=== PATIENT | male | born 1965 | race African-American/Black ===

== ENCOUNTER 2016-11-20 07:40 | Inpatient (IN) ==
[2016-11-20] MEDS ORDERED: SODIUM CHLORIDE 0.9% 1,000 ML IV STA ×2 (08:15→09:54)
[2016-11-20] MEDS ORDERED: HYDROmorphone 2 MG/1 ML VIAL IV STA (08:15)
[2016-11-20] MEDS ORDERED: ONDANSETRON 4 MG/2 ML VIAL IV STA (08:15)
[2016-11-20 08:36] LABS: Basophils % 0.4 % (0.0-0.8); Eosinophils # 0.1 10*3/uL (0.0-0.87); Eosinophils % 0.8 % (0.00-10.9); Hematocrit 44.9 VOL% (42.0-52.0); Hemoglobin 15.5 GM/DL (14.0-18.0); Immature Granulocytes % 0.3 %; Immature Granulocytes Absolute 0.02 #; Lymphocytes # 1.3 10*3/uL (1.4-4.0); Lymphocytes % 17.6 % (21.2-54.2); Mean Corpuscular HGB Conc 34.5 GM/DL (32-36); Mean Corpuscular Hemoglobin 28 PG (27-34); Mean Corpuscular Volume 81.8 FL (87-102); Monocytes # 0.9 10*3/uL (0.11-0.8); Monocytes % 12.6 % (1.7-12.7); Neutrophils # 4.9 10*3/uL (1.4-7.4); Neutrophils % 68.3 % (38.7-73.9); Platelet Count 179 T/CUMM (130-400); Red Blood Count 5.49 MC/CUMM (3.8-5.5); Red Cell Distribution Width 14.3 % (9.3-17.3); White Blood Count 7.2 T/CUMM (4-12)
[2016-11-20] MEDS ORDERED: HYDROmorphone 2 MG/1 ML VIAL ONE (08:38)
[2016-11-20] MEDS ORDERED: ONDANSETRON 4 MG/2 ML VIAL ONE (08:38)
--- NOTE | 2016-11-20 08:48 | Emergency Department Note ---
Veronica Noriega Gwan, am scribing for, and in the presence of, Dimitri Yee MD 08:24 . Nakia Noriega James D, MD, personally performed the services described in this documentation, ascribed by Yoly Martin in my presence, and it is both accurate and complete 847 . Arrival - Arrival Chief Complaint: Abdominal / Flank Pain Stated Complaint: bowel abstruction ED Nursing Triage Note: pt c/o left flank pain that radiates across his back. pt was seen yesterday for same c/o. states he was told he was constipated and given mag citrate. pt reports no bm in 1 week. denies urinary s/s. Mode of Arrival: Ambulatory Limitations: No Limitations Source: Patient, Old Records Reviewed, RN Notes Reviewed - History of Present Illness HPI Narrative: Patient is a 51 y/o black male who presents to the ED with a c/o bilateral abdomen pain with an onset 4 days ago. Patient was last seen in ED yesterday for the same reason and was given mag citrate for constipation with no relief or BM. Patient stated that his pain increased overnight prompting is visit to the ED this morning for further evaluation. Patient stated that his associated sxs have been pain with deep breathe, nausea, chills and that his pain worsens with walking. He denies having a BM within the last week, any dysuria, any hx of Pancreatitis or having a PCP. Patient has a SHx of occasional ETOH use. During exam, patient displayed signs of obvious discomfort. Onset (ago): day(s) Consistency: constant Severity: moderate Allergies/Adverse Reactions: Allergies Allergy/AdvReac Type Severity Reaction Status Date / Time Penicillins Allergy RASH Verified 11/20/16 07:57 Home Medications: Home Medications Medication Instructions Recorded Confirmed Type Magnesium Citrate [Citroma] 150 ml PO DAILY PRN #1 bottle 11/19/16 11/20/16 Rx Review of System - Review of System 12 point system: reviewed and no additional remarkable complaints except as stated - Review of System Constitutional: Present: as per HPI, chills. Absent: fever Eyes: Absent: discharge Head/Ears/Nose/Throat: Absent: earache Respiratory: Absent: cough Cardiovascular: Absent: chest pain, orthopnea Gastrointestinal: Present: as per HPI, abdominal pain (llq), nausea. Absent: vomiting, diarrhea Genitourinary male: Absent: urgency, dysuria, frequency Musculoskeletal: Absent: arm pain Medical,Surgical,& Family Hx - Medical History Cardio: History of: Hypertension Musculoskeletal: History of: Amputation (left 2nd digit) - Social History Smoking Status: Current every day smoker Frequency of Alcohol Use: None Type of Drug Use: None Exam Physical Examination: GENERAL: This is a ill-appearing black male in no apparent distress. VITAL SIGNS: HEENT: Head is normocephalic and atraumatic. Pupils are equally round and reactive to light. Extraocular movement are intact. Oropharynx is benign with moist mucous membranes. NECK: Neck is soft and supple without tenderness. There are no masses. There is no lymphadenopathy. LUNGS: Lungs are clear to auscultation bilaterally. Chest rises symmetrically. There is no chest wall tenderness. CV: Heart is regular rate and rhythm without murmurs, rubs, or gallops. ABDOMEN: Abdomen is soft, tender to palpation epigastric area, left CVA and right upper quadrant. There are no abnormal masses palpated. There is no organomegaly. Hypoactive bowel sounds. SKIN: Skin is warm and dry. No rash. EXTREMITIES: Patient has full range of motion without tenderness. There is no pedal edema. NEUROLOGIC: Awake, alert, and oriented x4. Cranial nerves II through XII are grossly intact. There are no motorsensory deficits. PSYCHIATRIC: Normal affect. Normal mood. Vital Signs: Vital Signs Temperature 97.5 F L 11/20/16 07:54 Pulse Rate 54 L 11/20/16 09:32 Respiratory Rate 16 11/20/16 09:32 Blood Pressure 116/94 11/20/16 09:32 O2 Sat by Pulse Oximetry 99 11/20/16 09:32 Course - Consultations Consultation #1: Discussed with Dr. Jenifer KELLOGG. Patient will be admitted to his service. Time: 11:28 Results - Labs CBC & BMP: 11/20/16 08:22 11/20/16 08:22 Lab Results: I have reviewed the patients labs Labs: Laboratory Tests 11/20/16 08:22 WBC 7.2 RBC 5.49 Hgb 15.5 Hct 44.9 MCV 81.8 L Plt Count 179 Lymph % (Auto) 17.6 L Lymph # (Auto) 1.3 L [place] # (Auto) 0.9 H Laboratory Tests 11/20/16 08:22 Sodium 141 Potassium 4.3 Chloride 110 H Carbon Dioxide 27 BUN 17 Creatinine 0.90 Calcium 8.4 L Globulin 3.6 H Albumin/Globulin Ratio 0.9 L Lipase 208.0 Laboratory Tests 11/20/16 08:22 Troponin I < 0.015 Laboratory Tests 11/20/16 08:22 Urine pH 6.0 Ur Specific [place] 1.016 Urine Urobilinogen < 2.0 H Urine WBC <1 - Diagnostic Findings Procedure: Abdominal x-ray: image reviewed by me (Scattered air-fluid levels, no free air), Chest x-ray: image reviewed by me (No infiltrates, no pleural effusions, no free air.), Ultrasound: report reviewed by me (Gallbladder ultrasound: Negative gallbladder ultrasound.) Disposition Clinical Impression: Abdominal pain, Possible colon obstruction Case discussed with: patient Disposition: Still a Patient Condition: Stable
--- NOTE | 2016-11-20 08:55 | Ultrasound Report ---
History: Epigastric and right upper quadrant pain Date: 11/20/2016 Study: Gallbladder ultrasound Comparison exam: No previous similar Real-time ultrasound images are captured and archived. The gallbladder is normal in appearance without gallstones, wall thickening, or abnormal pericholecystic fluid. The liver, bile ducts, pancreas, and right kidney are identified and appear normal. The common bile duct measures 2.6 mm diameter. The right kidney measures 10.7 cm length. The liver measures 16.6 cm length. Impression: Normal study PROCEDURE INTERPRETED AT [facility] DEPARTMENT OF RADIOLOGY Final Report Signed by: Dr. Taylor Zepeda
--- NOTE | 2016-11-20 09:18 | XRay Report ---
History is abdominal pain Comparison 08/01/2016 The heart is at the upper range normal in size with mild left ventricular prominence. Patient is rotated. There has been development of mild upper bilaterally perihilar reticular and hazy pulmonary opacities. Lungs are mildly under aerated. No more focal consolidation seen Impression: Mild perihilar infiltrates versus edema. Upright PA and lateral films suggested when feasible PROCEDURE INTERPRETED AT [facility] DEPARTMENT OF RADIOLOGY Final Report Signed by: Dr. Celi Martinez
[2016-11-20 09:19] LABS: Alanine Aminotransferase 22 U/L (16-61); Albumin 3.4 G/DL (3.4-5.0); Alkaline Phosphatase 64 U/L (45-117); Aspartate Amino Transferase 16 U/L (0-37); Bilirubin,Total < 0.39 MG/DL (0.2-1.0); Blood Urea Nitrogen 17 MG/DL (7-18); Calcium 8.4 MG/DL (8.5-10.1); Glucose 95 MG/DL (74-106); Osmolality,Calculated 282.3 MOS/KG (273-304); Potassium 4.3 MMOL/L (3.5-5.1); Sodium 141 MMOL/L (136-145); Troponin I Only < 0.015 NG/ML (0.00-0.045)
--- NOTE | 2016-11-20 09:26 | XRay Report ---
History: Abdominal pain Date: 11/20/2016 Study: Flat and erect abdomen Comparison exam: KUB 11/19/2016 There is no evidence of pneumoperitoneum. Some nonspecific fluid levels are noted in both large and small bowel on the upright view. There is some mild disproportionate colonic distention of the transverse colon level. There is a moderate amount of retained stool in the colon. No radiopaque calculi are seen. There is mild lumbar spondylosis. Impression: Mildly disproportionate colonic distention without montrell obstruction. Nonspecific fluid levels are noted in both large and small bowel on the upright view. Consider gastroenteritis. The patient is noted to be scheduled for a CT abdomen and pelvis later today PROCEDURE INTERPRETED AT [facility] DEPARTMENT OF RADIOLOGY Final Report Signed by: Dr. Taylor Zepeda
[2016-11-20 10:16] LABS: Apearance,Urine CLEAR (Clear); Bilirubin,Urine Negative (Negative); Blood, Urine Negative (Negative); Glucose,Urine (UA) Negative (Negative); Ketones,Urine Negative (Negative); Mucus,Urine Occasional /LPF (Occasional); Nitrite,Urine Negative (Negative); Protein,Urine Negative; Urine Color Yellow (Yellow); Urine Specific Gravity 1.016 (1.001-1.035); Urine Urobilinogen < 2.0 EU/DL (0.2-1.0); WBC,Urine <1 /HPF (0-6)
--- NOTE | 2016-11-20 11:37 | CT Report ---
History: Epigastric, left upper quadrant, and right upper quadrant abdominal pain with negative gallbladder ultrasound Date: 11/20/2016 Study: CT abdomen and pelvis with IV contrast Comparison exam: CT abdomen and pelvis May 31, 2010 Technique: Spiral CT sections were obtained from the lung bases to the pubic symphysis following oral contrast and 100 mL Omnipaque [address] exam was performed using one or more of the following dose reduction techniques: Automated exposure control, adjustment of the mA and/or kV according to patient size, or use of iterative reconstruction technique. CT abdomen: The partially visualized lung bases are clear. There is mild strandy subsegmental atelectasis in the right middle lobe and right lower lobe. There is no pleural or pericardial effusion. There is no evidence of pneumoperitoneum. There is mild diffuse fatty infiltration of the otherwise unremarkable liver. The spleen, pancreas, adrenal glands, bile ducts, gallbladder, and kidneys are unremarkable in CT appearance. There is no aneurysm of the mildly calcified abdominal aorta. There is no evidence of appendicitis. There is abrupt transition of oral contrast mixed with stool in the distal transverse colon compared to stool or occult mass in the splenic flexure the colon, with no change in caliber. There is fluid in the colon distal to the splenic flexure. There is no aneurysm of the moderately calcified abdominal aorta. There is no lymphadenopathy by short axis diameter criteria. CT pelvis: There are some scattered diverticuli in the colon without montrell diverticulitis. There is no soft tissue mass in the pelvis. There is mild diffuse prominence of the prostate gland. There is no pelvic lymphadenopathy by short axis diameter criteria. Impression: Potential high fecal impaction of the splenic flexure. Underlying mass cannot be excluded. Consider follow-up Gastrografin enema or endoscopy when clinically appropriate. Diverticulosis without montrell diverticulitis Platelike scar or subsegmental atelectasis right lower lung. PROCEDURE INTERPRETED AT [facility] DEPARTMENT OF RADIOLOGY Final Report Signed by: Dr. Taylor Zepeda
[2016-11-20] MEDS ORDERED: PROPOFOL 200 MG/20 ML VIAL IV ONE (12:17)
[2016-11-20] MEDS ORDERED: LIDOCAINE 2% 5 ML VIAL ONE (12:17)
[2016-11-20] MEDS ORDERED: ACETAMINOPHEN 325 MG TABLET PO PRN (13:50)
[2016-11-20] MEDS ORDERED: ONDANSETRON 4 MG/2 ML VIAL IV PRN (13:50)
--- NOTE | 2016-11-20 14:33 | General Surg History&Physical ---
Assessment and Plan - Time spent with patient Time spent with patient: Greater than 30 minutes (1) Abdominal pain Status: Acute Assessment and plan: This appears to represent a colonic obstruction. It is unclear if it is from a neoplasm or from obstipation. I am ordering a Gastrografin enema. He may need colonoscopy. He has not had weight loss and did not have symptoms prior to a week ago. We will admit him for further workup and relief of his bowel obstruction. I explained that if he has a mass lesion obstructing his colon that he may need surgery. He does not have any obvious signs of sepsis or intestinal compromise at this point. Current Visit: Yes Qualifiers: Abdominal location: generalized Qualified Code(s): R10.84 - Generalized abdominal pain History of Present Illness Chief complaint: Abdominal pain History of present illness: Mr. Mix is a 51 year old male Who had no complaints until about 6 days ago he began developing diffuse abdominal pain which was cramping but became constant. This was accompanied by nausea but no vomiting. He states that he has had a small amount of blood in his stools and has not had a bowel movement in several days. He describes the pain is moderate in severity. The pain does not radiate but he has some associated back pain. He had a CT scan of his abdomen which shows a dilated colon with a transition point at the splenic flexure. It is unclear if there is a ball of stool at this point. The colon is not decompressed past this point. Home Medications Medication Instructions Recorded Confirmed Type Magnesium Citrate [Citroma] 150 ml PO DAILY PRN #1 bottle 11/19/16 11/20/16 Rx Allergies Allergy/AdvReac Type Severity Reaction Status Date / Time Penicillins Allergy RASH Verified 11/20/16 07:57 Medical,Surgical,& Family Hx - Medical History Cardio: History of: Hypertension Musculoskeletal: History of: Amputation (left 2nd digit) - Family History Family History: noncontributory - Social History Smoking Status: Current every day smoker Frequency of Alcohol Use: None Type of Drug Use: None Exam - Constitutional Vitals: Period Temp Pulse Resp BP Sys/Espinoza Pulse Ox Last 24 Hr 97.5 F-97.5 F 51-56 16-18 116-144/78-94 98-100 General appearance: no acute distress - Head Head exam: Present: normocephalic - Eye Eye exam: Absent: scleral icterus Pupils: Present: ROSALINA - ENT Mouth exam: Present: normal voice - Neck Neck exam: Present: trachea midline. Absent: lymphadenopathy, tenderness, thyromegaly - Respiratory Respiratory exam: Present: clear to auscultation bilaterally. Absent: accessory muscle use - Cardiovascular Cardiovascular exam: Present: RRR - GI/Abdominal GI/Abdominal exam: Present: normal bowel sounds, distended, soft. Absent: guarding, mass, Winslow's sign, tenderness, rebound - Extremities Exam Extremities exam: Absent: edema - Back Exam Back exam: Present: normal inspection - Neurological Exam Neurological exam: Present: alert, oriented X3. Absent: motor sensory deficit Speech: Present: normal - Skin Skin exam: Present: normal color - Constitutional Constitutional: Absent: anorexia, chills, fever(s), weight loss - EENT Nose, mouth and throat: Absent: dysphagia - Cardiovascular Cardiovascular: Absent: chest pain at rest, chest pain with activity, dyspnea, dyspnea on exertion, syncope - Respiratory Respiratory: Absent: cough, dyspnea, hemoptysis, dyspnea on exertion - Gastrointestinal Gastrointestinal: Present: abdominal pain, bloating, change in bowel habits, cramping, hematochezia, nausea. Absent: coffee ground emesis, diarrhea, hematemesis, melena, vomiting, jaundice - Genitourinary Genitourinary: Absent: flank pain, hematuria - Musculoskeletal Musculoskeletal: Present: back pain - Neurological Neurological: Absent: focal weakness, syncope - Endocrine Endocrine: Absent: polyuria Hematologic/Lymphatic: Absent: easy bleeding, easy bruising Results - Labs CBC & BMP: 11/20/16 08:22 11/20/16 08:22 Lab Results: I have reviewed the past 24 hour labs - Diagnostic Findings Procedure: CT Abdomen and Pelvis: image reviewed by me, report reviewed by me
[2016-11-20] MEDS: LACTATED RINGERS 1,000 ML IV SCH ×2 (14:42→21:23)
--- NOTE | 2016-11-20 14:53 | Gastrointestinal Consult Note ---
Assessment and Plan (1) Abdominal pain Status: Acute Assessment and plan: 11/20-1 week history of generalized abdominal pain worsening over the last several days with constipation history and recent obstipation 5-6 day. No other associated symptoms. No prior colonoscopy in the past. CT findings noted as below. For Gastrografin enema today. Plan an addendum to follow by Dr. Zepeda. Current Visit: Yes Qualifiers: Abdominal location: generalized Qualified Code(s): R10.84 - Generalized abdominal pain History of Present Illness Chief complaint: Abdominal pain History of present illness: Mr. Mix is a 51 year old male who was admitted to the hospital with 1 week history of abdominal pain. Patient states that he was in his usual state of health until approximately a week ago when he had some worsening constipation. He states that he has a history of constipation over the last several years and is required laxative use at times. Patient states that approximately 5-6 days ago he had a small bowel movement however has not had one since this time. He states that he has had some mild generalized abdominal pain since that time that has slowly worsened over the last several days. This was not associated with any other symptoms including nausea or vomiting. He states that he woke up this morning with severe abdominal pain and came to the emergency room for further evaluation at that time. Patient complains of the pain in his left lower abdomen as well as pain that radiates around to his back at times. He has taken several laxatives over the last several days to facilitate a bowel movement without success however states he did have a small and while in the emergency room. Upon questioning, patient also stated that he has had off and on bright red rectal bleeding over the several years however is never had this evaluated before. He states it mostly follows episodes of constipation and feels it is possibly hemorrhoid related. He has a longtime history of constipation as well with irregular bowel pattern. He denies a family history of colon cancer. Denies any weight loss, fever, chills or night sweats. Upon admission, he had a CT of the abdomen with IV and oral contrast which showed a potential high fecal impaction of the splenic flexure. He also had a gallbladder ultrasound which was negative. Abdominal x-ray showed mildly disproportionate colonic distention without montrell obstruction. Dr. Burgess has consulted with the patient and he is for a Gastrografin enema later today. Home Medications Medication Instructions Recorded Confirmed Type Magnesium Citrate [Citroma] 150 ml PO DAILY PRN #1 bottle 11/19/16 11/20/16 Rx Allergies Allergy/AdvReac Type Severity Reaction Status Date / Time Penicillins Allergy RASH Verified 11/20/16 07:57 Medical,Surgical,& Family Hx - Medical History Cardio: History of: Hypertension Musculoskeletal: History of: Amputation (left 2nd digit) - Social History Smoking Status: Current every day smoker Frequency of Alcohol Use: None Type of Drug Use: None 12 point system: reviewed and no additional remarkable complaints except as stated - Constitutional Constitutional: Present: as per HPI - EENT Eyes: Present: as per HPI Ears: Present: as per HPI Nose, mouth and throat: Present: as per HPI - Cardiovascular Cardiovascular: Present: as per HPI - Respiratory Respiratory: Present: as per HPI - Gastrointestinal Gastrointestinal: Present: as per HPI, abdominal pain, constipation, hematochezia - Genitourinary Genitourinary: Present: as per HPI - Musculoskeletal Musculoskeletal: Present: as per HPI - Neurological Neurological: Present: as per HPI - Psychiatric Psychiatric: Present: as per HPI - Endocrine Endocrine: Present: as per HPI - Hematologic/Lymphatic Hematologic/Lymphatic: Present: as per HPI Exam - Constitutional Vitals: Period Temp Pulse Resp BP Sys/Espinoza Pulse Ox Last 24 Hr 97.5 F-97.8 F 51-56 16-18 116-144/78-94 98-100 General appearance: normal weight, no acute distress - Head Head exam: Present: normal inspection, normocephalic - Eye Eye exam: Present: other (Lids and conjunctivae are unremarkable). Absent: scleral icterus - ENT ENT exam: Present: normal exam, normal oropharynx - Neck Neck exam: Present: normal inspection - Respiratory Respiratory exam: Present: clear to auscultation bilaterally. Absent: rales, rhonchi, wheezes - Cardiovascular Cardiovascular exam: Present: regular rate and rhythm. Absent: diastolic murmur , JVD, systolic murmur - GI/Abdominal GI/Abdominal exam: Present: normal bowel sounds, tenderness (Left lower quadrant ), soft. Absent: ascites, distended, mass, organomegaly - Extremities Exam Extremities exam: Present: normal inspection, full ROM - Back Exam Back exam: Present: normal inspection - Neurological Exam Neurological exam: Present: alert, oriented X3 - Psychiatric Psychiatric exam: Present: normal affect, normal mood - Skin Skin exam: Present: normal color, warm, dry Results - Labs CBC & BMP: 11/20/16 08:22 11/20/16 08:22 Lab Results: I have reviewed the past 24 hour labs - Diagnostic Findings Procedure: CT Abdomen and Pelvis: report reviewed by me
[2016-11-20] MEDS: HYDROmorphone 2 MG/1 ML VIAL IV PRN (15:41)
--- NOTE | 2016-11-20 17:09 | Fluoroscopy Report ---
FL enema w gastrographin Indication: Colonic obstruction Comparison: Correlation with CT abdomen pelvis dated November 20, 2016 Technique: Gastrografin enema was performed after rectal administration of contrast under fluoroscopic guidance. 29 total images. Fluoroscopy time 1 minute 43 seconds. Findings: Images demonstrate no convincing evidence of significant stricture or mass involving the colon. There is no evidence of contrast leak. IMPRESSION: As above. PROCEDURE INTERPRETED AT [facility] DEPARTMENT OF RADIOLOGY Final Report Signed by: Dr Luis Felipe Sheehan
[2016-11-20] MEDS ORDERED: POLYETHYLENE GLYCOL POWDER 255 GM BOTTLE PO ONE (19:45)
[2016-11-21] MEDS: LACTATED RINGERS 1,000 ML IV SCH ×3 (04:51→22:49)
[2016-11-21] MEDS ORDERED: MAGNESIUM CITRATE 300 ML BOTTLE PO ONE (06:00)
[2016-11-21] MEDS: HYDROmorphone 2 MG/1 ML VIAL IV PRN ×2 (06:02→21:16)
--- NOTE | 2016-11-21 07:10 | General Surgery Progress Note ---
Assessment and Plan (1) Abdominal pain Status: Acute Assessment and plan: This appears to represent a colonic obstruction. It is unclear if it is from a neoplasm or from obstipation. I am ordering a Gastrografin enema. He may need colonoscopy. He has not had weight loss and did not have symptoms prior to a week ago. We will admit him for further workup and relief of his bowel obstruction. I explained that if he has a mass lesion obstructing his colon that he may need surgery. He does not have any obvious signs of sepsis or intestinal compromise at this point. 11/21: His Gastrografin enema was negative for obstruction. Since that time he has had some bowel movements but is still distended and has mild abdominal pain. I did discuss his case with Dr. Zepeda. We both agree that he would probably benefit from colonoscopy. Etiology of his dilated colon is unclear. Current Visit: Yes Qualifiers: Abdominal location: generalized Qualified Code(s): R10.84 - Generalized abdominal pain Subjective Patient reports: Present: feels better, pain is less, bowel movement, diarrhea. Absent: nausea, vomiting, fever Exam - Constitutional Vitals: Period Temp Pulse Resp BP Sys/Espinoza Pulse Ox Last 24 Hr 96.8 F-97.8 F 51-78 16-18 116-144/76-94 93-100 General appearance: no acute distress - Eye Eye exam: Absent: scleral icterus - Respiratory Respiratory exam: Absent: accessory muscle use - GI/Abdominal GI/Abdominal exam: Present: distended, soft. Absent: guarding, tenderness, rebound Results - Labs CBC & BMP: 11/20/16 08:22 11/20/16 08:22 Lab Results: I have reviewed the past 24 hour labs
--- NOTE | 2016-11-21 07:45 | EKG Report ---
Stationary ECG Study [facility] ER Test Date: 11/20/2016 9:16:38 AM Pat Name: GAMA FERMIN Department: Room: 344 Gender: M [employer]: : [id number] Requested by: Dimitri Nolasco Order Number: [id number] Reading MD: PIERRE BLANCA Intervals [place] Rate: 48 P: 51 [place]: 173 QRS: 54 QRSD: 109 T: 60 QT: 445 QTc: 413 Interpretive Statements SINUS BRADYCARDIA at 40 bpm Early repolarization Otherwise within normal limits Electronically Signed On 11-23-16 08:50:13 CDT by PIERRE BLANCA [email or web address]
[2016-11-21] MEDS: PANTOPRAZOLE 40 MG TABLET PO SCH (09:08)
--- NOTE | 2016-11-21 12:20 | History and Physical Update ---
History and Physical Update - History and Physical H&P was reviewed, the patient examined and there: are no changes in the patients condition since last H&P was completed. - Physical Exam Mental Status: alert and oriented Heart: regular rate and rhythm Lung: clear to auscultation Abdomen: within normal limits Vitals: within normal limits
--- NOTE | 2016-11-21 12:38 | Operative Note ---
Date of procedure: 11/21/16 Pre-op diagnosis: Blood in stool Procedure: Procedure note: Colonoscopy Physician: Dr. Surjit Zepeda Brief clinical abstract: 51-year-old male was admitted with increased constipation and abdominal distention. He has had some recent bright red blood in stool as well. There was initial concern that he might have colonic obstruction but had Gastrografin enema yesterday showing no sign of this. His weight is stable. Endoscopic findings: After informed consent was obtained, the patient was placed in the left lateral decubitus position. Digital rectal exam was performed with no palpable abnormalities felt. Pediatric videocolonoscope was inserted into the rectum and advanced to the cecum without difficulty. Retroflex view within the cecum was performed back to the level of the hepatic flexure. The endoscope was advanced back to the cecum and on withdrawal colonic mucosa was carefully examined. Bowel prep was of good quality. Withdrawal time was over 6 minutes duration. No polyps were seen. Vascular pattern throughout the colon appeared normal. Scattered small diverticuli were noted in the descending and sigmoid colon. The endoscope was withdrawn in the rectum with retroflex view showing small internal hemorrhoids. The endoscope was then removed. He appeared to tolerate the procedure well. Impression: #1 left colon diverticulosis #2 internal hemorrhoids-appears to be source of recent bright red blood in stool Plan: Thyroid function tests to evaluate recent onset constipation. Anesthesia: MAC Surgeon / Physician: Carlos Zepeda Estimated blood loss: none Specimens: none sent Condition: stable Disposition: post procedure unit Results - Labs CBC & BMP: 11/20/16 08:22 11/20/16 08:22 Discharge Plan - Discharge Medications No Action Magnesium Citrate [Citroma] 150 ml PO DAILY PRN #1 bottle PRN Reason: Constipation - Follow Up or Referral - Forms/Instructions
--- NOTE | 2016-11-21 12:44 | Anesthesia Post-Op ---
Anesthesia Post OP - Post Ansesthetic Evaluation Patient seen in post op: Yes Resp: within normal limits CV: within normal limits Mental: within normal limits Temp: within normal limits [id number]: within normal limits Nausea and Vomiting: within normal limits Pain: within normal limits
[2016-11-22] MEDS: HYDROmorphone 2 MG/1 ML VIAL IV PRN (04:30)
[2016-11-22] MEDS: LACTATED RINGERS 1,000 ML IV SCH ×3 (06:25→22:14)
--- NOTE | 2016-11-22 07:27 | General Surgery Progress Note ---
Assessment and Plan (1) Abdominal pain Status: Acute Assessment and plan: This appears to represent a colonic obstruction. It is unclear if it is from a neoplasm or from obstipation. I am ordering a Gastrografin enema. He may need colonoscopy. He has not had weight loss and did not have symptoms prior to a week ago. We will admit him for further workup and relief of his bowel obstruction. I explained that if he has a mass lesion obstructing his colon that he may need surgery. He does not have any obvious signs of sepsis or intestinal compromise at this point. 11/21: His Gastrografin enema was negative for obstruction. Since that time he has had some bowel movements but is still distended and has mild abdominal pain. I did discuss his case with Dr. Zepeda. We both agree that he would probably benefit from colonoscopy. Etiology of his dilated colon is unclear. 719: He feels better and is not having nausea or vomiting or abdominal distention but now describes pain in his right back and flank radiating to his right groin. His abdomen is now nontender. His colonoscopy was essentially negative. Current Visit: Yes Qualifiers: Abdominal location: generalized Qualified Code(s): R10.84 - Generalized abdominal pain Subjective Patient reports: Present: feels better, pain is less, flatus, bowel movement. Absent: blood in stool, nausea, vomiting, shortness of breath Exam - Constitutional Vitals: Period Temp Pulse Resp BP Sys/Espinoza Pulse Ox Last 24 Hr 96.4 F-98.7 F 40-82 13-20 101-136/55-80 95-100 General appearance: no acute distress - Head Head exam: Present: normocephalic - Eye Eye exam: Absent: scleral icterus - ENT Mouth exam: Present: normal voice - Respiratory Respiratory exam: Absent: accessory muscle use - GI/Abdominal GI/Abdominal exam: Present: soft. Absent: distended, tenderness Results - Labs CBC & BMP: 11/20/16 08:22 11/20/16 08:22 Lab Results: I have reviewed the past 24 hour labs
[2016-11-22] MEDS: PANTOPRAZOLE 40 MG TABLET PO SCH (08:33)
[2016-11-22 09:31] LABS: Apearance,Urine CLEAR (Clear); Bilirubin,Urine Negative (Negative); Blood, Urine Negative (Negative); Glucose,Urine (UA) Negative (Negative); Ketones,Urine Negative (Negative); Nitrite,Urine Negative (Negative); Protein,Urine Negative; RBC,Urine <1 /HPF (0-4); Urine Color Straw (Yellow); Urine Specific Gravity 1.005 (1.001-1.035); Urine Urobilinogen < 2.0 EU/DL (0.2-1.0); WBC,Urine <1 /HPF (0-6)
--- NOTE | 2016-11-22 09:46 | Gastrointestinal Progress Note ---
Assessment and Plan (1) Abdominal pain Status: Acute Assessment and plan: 11/22-post colonoscopy with findings noted as below. No further overt bleeding. Tolerating diet. Continued complaint of flank pain. UA negative. Plan an addendum to follow Dr. Zepeda. 11/20-1 week history of generalized abdominal pain worsening over the last several days with constipation history and recent obstipation 5-6 day. No other associated symptoms. No prior colonoscopy in the past. CT findings noted as below. For Gastrografin enema today. Plan an addendum to follow by Dr. Zepeda. Current Visit: Yes Qualifiers: Abdominal location: generalized Qualified Code(s): R10.84 - Generalized abdominal pain Gastroenterology - PN: Subj Interval history: CC: Blood in stool Patient is seen awake and alert with family at bedside. States that he is feeling a little better however is now complaining of some flank pain bilaterally. No reports of overt bleeding. He is afebrile and denies any nausea or vomiting. Denies any abdominal pain. Colon scope results noted for left colon diverticulosis and internal hemorrhoids which appeared to be the site for the blood in his stool. TSH is pending for this morning. Patient's UA without indications for culture and negative for leukocytes. Abdomen soft, nontender. Discussed implementing MiraLAX daily for regulation of bowel function at home. ROS: Denies shortness of breath or chest pain Exam (Progress Note) - Constitutional Vitals: Period Temp Pulse Resp BP Sys/Espinoza Pulse Ox Last 24 Hr 96.4 F-97.9 F 40-82 13-20 101-136/60-80 95-100 General appearance: normal weight, no acute distress - Head Head exam: Present: normal inspection, normocephalic - Eye Eye exam: Present: other (Lids and conjunctive are unremarkable). Absent: scleral icterus - ENT ENT exam: Present: normal exam, normal oropharynx - Neck Neck exam: Present: normal inspection - Respiratory Respiratory exam: Present: clear to auscultation bilaterally. Absent: rales, rhonchi, wheezes - Cardiovascular Cardiovascular exam: Present: regular rate and rhythm. Absent: diastolic murmur , JVD, systolic murmur - GI/Abdominal GI/Abdominal exam: Present: normal bowel sounds, soft. Absent: ascites, distended, mass, organomegaly, tenderness - Extremities Exam Extremities exam: Present: normal inspection, full ROM - Back Exam Back exam: Present: normal inspection - Neurological Exam Neurological exam: Present: alert, oriented X3 - Psychiatric Psychiatric exam: Present: normal affect, normal mood - Skin Skin exam: Present: normal color, warm, dry Results - Labs CBC & BMP: 11/20/16 08:22 11/20/16 08:22 Lab Results: I have reviewed the past 24 hour labs
[2016-11-22] MEDS: METHOCARBAMOL 750 MG TABLET PO SCH (20:46)
[2016-11-23] MEDS: HYDROmorphone 2 MG/1 ML VIAL IV PRN (03:31)
[2016-11-23] MEDS: LACTATED RINGERS 1,000 ML IV SCH (06:29)
[2016-11-23] MEDS: METHOCARBAMOL 750 MG TABLET PO SCH (09:07)
[2016-11-23] MEDS: PANTOPRAZOLE 40 MG TABLET PO SCH (09:07)
--- NOTE | 2016-11-23 09:29 | General Surgery Progress Note ---
Assessment and Plan (1) Abdominal pain Status: Acute Assessment and plan: This appears to represent a colonic obstruction. It is unclear if it is from a neoplasm or from obstipation. I am ordering a Gastrografin enema. He may need colonoscopy. He has not had weight loss and did not have symptoms prior to a week ago. We will admit him for further workup and relief of his bowel obstruction. I explained that if he has a mass lesion obstructing his colon that he may need surgery. He does not have any obvious signs of sepsis or intestinal compromise at this point. 11/21: His Gastrografin enema was negative for obstruction. Since that time he has had some bowel movements but is still distended and has mild abdominal pain. I did discuss his case with Dr. Zepeda. We both agree that he would probably benefit from colonoscopy. Etiology of his dilated colon is unclear. 719: He feels better and is not having nausea or vomiting or abdominal distention but now describes pain in his right back and flank radiating to his right groin. His abdomen is now nontender. His colonoscopy was essentially negative. 11/23: He feels better. His abdominal pain is essentially resolved. The right flank pain is much better. His repeat urinalysis was once again negative. There is no evidence of hematuria and there was no evidence of kidney stone on his initial CT scan. I see no evidence of obstruction or intra-abdominal process at this point. I think he should be fine for discharge and I will follow him up in the office in 1 week. Current Visit: Yes Qualifiers: Abdominal location: generalized Qualified Code(s): R10.84 - Generalized abdominal pain Subjective Patient reports: Present: feels better, pain is less, tolerating a regular diet , bowel movement. Absent: nausea, vomiting Exam - Constitutional Vitals: Period Temp Pulse Resp BP Sys/Espinoza Pulse Ox Last 24 Hr 97.5 F-98.6 F 48-58 16-18 116-161/60-105 97-100 General appearance: no acute distress - Respiratory Respiratory exam: Absent: accessory muscle use - GI/Abdominal GI/Abdominal exam: Present: soft. Absent: distended, guarding, tenderness, rebound Results - Labs CBC & BMP: 11/20/16 08:22 11/20/16 08:22
--- NOTE | 2016-11-23 09:53 | XRay Report ---
XR thoracic spine 2V ap/lat Clinical Information: Upper back pain Comparison: None available Findings: Vertebral body heights and alignment are within normal limits. Mild multilevel degenerative changes including endplate sclerosis and mild disc space loss is noted primarily in the lower thoracic spine. There is also very mild S-shaped scoliotic deformity noted on the AP view. There is no acute fracture or subluxation identified. No suspicious osseous or soft tissue lesions are identified. Impression: No acute fracture or subluxation in the Thoracic spine. Mild multilevel degenerative changes. PROCEDURE INTERPRETED AT [facility] DEPARTMENT OF RADIOLOGY Final Report Signed by: Asad Alonso
--- NOTE | 2016-11-23 09:54 | Discharge Summary ---
Hospital Course - Hospital Course Hospital Course: Mr. Mix is a 51-year-old -[place] male with no medical history admitted by Dr. Jenifer KELLOGG through the emergency room with diffuse abdominal pain and cramping. CT scan of the abdomen showed a dilated colon with a transition point at the splenic flexure. It appeared to be a colonic obstruction versus neoplasm. Gastrografin enema was ordered and it was negative. Patient did have multiple bowel movements after this but he continued to be bloated and complained of abdominal pain. He then developed some rectal bleeding and Dr. Zepeda from GI was consulted. He performed a colonoscopy on 11/21/2016 and he found left colon diverticulosis with internal hemorrhoids that appeared to be the source of bleeding. Patient is doing well now. His abdominal pain has resolved and he has had multiple bowel movements. He is also tolerating a diet. He is having low back and flank pain that appears to be musculoskeletal in nature. Muscle relaxers were given and this is seem to help. Patient will be discharged home with stool softeners that will be regularly scheduled and a few muscle relaxers and a follow-up appointment with his primary care physician to follow-up his low back pain. Patient will see Dr. Jenifer KELLOGG in 1-2 weeks for follow-up. Care coordination , chart review, and completed discharge paperwork took approximately 35 minutes. - Time spent with patient Time with patient DS: Greater than 30 minutes Discharge Plan - Discharge Data Disposition: Disch To Home/Self Care Condition at Discharge: Stable Discharge Diet: advance to your usual diet Activity: resume usual activities as tolerated Contact your physician if you experience:: Nausea/Vomiting - Discharge Medications New Methocarbamol Tab [Robaxin Tab] 750 mg PO TID PRN #20 tablet PRN Reason: Pain Polyethylene Glycol Powder [Miralax] 17 gm PO DAILY #1 pack Continue Magnesium Citrate [Citroma] 150 ml PO DAILY PRN #1 bottle PRN Reason: Constipation - Follow Up or Referral Follow Up: Aidan Burgess III., MD [Physician] - 2 Weeks family,physician [Other] - 1 Week (Follow-up low back pain) - Forms/Instructions Exam - Constitutional Vitals: Period Temp Pulse Resp BP Sys/Espinoza Pulse Ox Last 24 Hr 97.5 F-98.6 F 48-58 16-18 116-161/60-105 97-100 Discharge Results Procedures and tests throughout hospitalization: Pending Orders 11/21/16 TSH, Sensitive, S Routine 11/23/16 04:00 XR thoracic spine 2V ap/lat Routine DS: Provider Date of admission: 11/20/16 11:29 Primary care physician: . No PCP Attending physician on admission: Aidan Burgess III., Consults: 11/20/16 13:50 Consult to Physician [CONS] Routine Comment: poss colon lesion Consulting Provider: Carlos Zepeda Consulting Provider Notified: Yes When should Consulting Provider be notified: Now Person Notified: howard sam Date Notified: 11/20/16 Time Notified: 14:25 11/20/16 15:42 Consult to Pastoral Services [CONS] Routine Comment: Pastoral Screen: Request Life Skills Coordinator Visit Pastoral Screen Source of Request: Patient Discharging clinician: MARYBETH Joseph Expected date of discharge: 11/23/16
[2016-11-23 11:08] VITALS: BP 118/62
== END 2016-11-23 12:12 | disposition home or self-care (01) | DRG 392 ==
LOC: N.ED 07:40 → N.EDINP 11:29 → N.3E 12:57
PROVIDERS: ADMIT Surgery; ATTEND Surgery